=== PATIENT | male | born 1975 | race Caucasian/White ===

== ENCOUNTER → 2020-10-28 | Outpatient (CLI) | payer OTHER ==
[~2020-10-28] MED LIST: AMLODIPINE5 MG PO; BENAZEPRIL20 MG PO; CETIRIZINE HCL10 M1 PO; CIPRO500 MG PO; CRESTOR10 M1 PO; FLOMAX0.4 MG PO; HYDROCODONE BIT1 T11 PO; LEVOCETIRIZINE D5 M1 PO; MACROBID100 M1 PO; MULTIPLE VITAMI1 TA3 PO; PRILOSEC40 M1 PO; PYRIDIUM200 M1 PO; SINGULAIR10 M1 PO; VICODIN ES 7501 TAB PO
== END | disposition home or self-care (01) ==
LOC: COVID19 10:44
PROVIDERS: ATTEND Family Medicine
DX: Z20.822 Contact with and (suspected) exposure to COVID-19 (principal)

== ENCOUNTER 2021-01-11 19:10 | Emergency (ER) | payer OTHER ==
[2021-01-11] MEDS ORDERED: FLONASE ALLERG9.9 ML NAS (22:37)
[2021-01-11] MEDS ORDERED: AUGMENTIN 875875 MG PO (22:37)
[2021-01-11] MEDS ORDERED: ZYRTEC10 M2 PO (22:37)
== END 2021-01-11 22:33 | disposition home or self-care (01) ==
LOC: ED 19:10
DX: J32.9 Chronic sinusitis, unspecified (principal); Z20.822 Contact with and (suspected) exposure to COVID-19; Z79.899 Other long term (current) drug therapy; Z98.890 Other specified postprocedural states

== ENCOUNTER 2023-06-24 19:00 | Emergency (ER) | payer OTHER ==
[~2023-06-24] VITALS: Ht 172.7 cm; Wt 102.1 kg
[~2023-06-24 19:00] MED LIST changes: +AMLODIPINE BESY10 MG PO; -AMLODIPINE5 MG PO; +AUGMENTIN 875875 MG PO; +FLONASE ALLERG9.9 ML NAS; +ZYRTEC10 M2 PO
[2023-06-24 19:23] LABS: BASO # 0.2 10*3/uL (0.0-0.1); BASO % 1.7 % (0.0-1.0); EOS % 7.9 % (1.0-4.0); HEMATOCRIT 43.3 % (42.0-52.0); LYMPH # 4.3 10*3/uL (1.3-4.4); LYMPH % 34.1 % (27.0-41.0); MEAN CELL VOLUME 86.6 fl (80.0-94.0); MEAN CORPUSCULAR HGB 28.6 pg (27.0-31.0); MONO # 1.2 10*3/uL (0.1-1.0); MONO % 9.1 % (3.0-9.0); NEUT % 46.9 % (47.0-73.0); PLATELET COUNT AUTOMATED 338 10*3/uL (130-400); RED CELL DISTRI WIDTH 13.3 % (0-14.5); WHITE BLOOD COUNT 12.7 10*3/uL (4.8-10.8)
[2023-06-24 19:34] LABS: ACT PARTIAL THROMBO TIME 26.4 SECONDS (20.0-32.1)
[2023-06-24 19:50] LABS: ALKALINE PHOSPHATASE 101 U/L (46-116); BUN 8 mg/dl (9-23); CHLORIDE 105 mmol/L (98-107); POTASSIUM 3.8 mmol/L (3.4-5.1); SGPT/ALT 46 U/L (10-49); TOTAL PROTEIN 7.4 gm/dL (6.0-8.0)
[2023-06-26] MEDS ORDERED: METFORMIN HYDR500 MG PO (09:28)
[2023-06-26] MEDS ORDERED: LIPITOR80 MG PO (09:29)
[2023-06-26] MEDS ORDERED: TOPIRAMATE100 M2 PO (09:30)
[2023-06-26] MEDS ORDERED: CITALOPRAM20 MG PO (09:31)
[2023-06-26] MEDS ORDERED: BUPROPION HYDR150 M1 PO (09:32)
[2023-06-26 12:04] LABS: BASO # 0.2 10*3/uL (0.0-0.1); BASO % 1.8 % (0.0-1.0); EOS # 0.9 10*3/uL (0.0-0.4); EOS % 6.3 % (1.0-4.0); HEMATOCRIT 43.4 % (42.0-52.0); LYMPH # 3.7 10*3/uL (1.3-4.4); LYMPH % 27.1 % (27.0-41.0); MEAN CELL VOLUME 86.1 fl (80.0-94.0); MEAN CORPUSCULAR HGB 28.6 pg (27.0-31.0); MEAN CORPUSCULAR HGB CONC 33.2 g/dl (33.0-37.0); MEAN PLATELET VOLUME 8.9 fl (9.6-12.3); MONO # 1.1 10*3/uL (0.1-1.0); MONO % 7.9 % (3.0-9.0); NEUT # 7.7 10*3/uL (2.3-7.9); NEUT % 56.5 % (47.0-73.0); PLATELET COUNT AUTOMATED 323 10*3/uL (130-400); RED BLOOD COUNT 5.04 10*6/uL (4.50-5.90); RED CELL DISTRI WIDTH 13.6 % (0-14.5); WHITE BLOOD COUNT 13.6 10*3/uL (4.8-10.8)
[2023-06-26 12:34] LABS: ALKALINE PHOSPHATASE 103 U/L (46-116); BUN 12 mg/dl (9-23); CHLORIDE 106 mmol/L (98-107); POTASSIUM 4.1 mmol/L (3.4-5.1); SGPT/ALT 40 U/L (10-49); TOTAL PROTEIN 7.1 gm/dL (6.0-8.0)
== END 2023-06-26 19:47 | disposition short-term general hospital (02) ==
LOC: ED 19:00
PROVIDERS: Internal Medicine
DX: I21.4 Non-ST elevation (NSTEMI) myocardial infarction (principal); I16.0 Hypertensive urgency; E78.00 Pure hypercholesterolemia, unspecified; Z90.89 Acquired absence of other organs; Z98.890 Other specified postprocedural states

== ENCOUNTER 2024-12-30 22:24 | Emergency (ER) | payer OTHER ==
[~2024-12-30] VITALS: Ht 175.2 cm; Wt 104.3 kg
[~2024-12-30 22:24] MED LIST changes: +BUPROPION HYDR150 M1 PO; +CITALOPRAM20 MG PO; +LIPITOR80 MG PO; +METFORMIN HYDR500 MG PO; +TOPIRAMATE100 M2 PO
[2024-12-30 23:01] LABS: BASO # 0.2 10*3/uL (0.0-0.1); BASO % 1.6 % (0.0-1.0); EOS # 0.5 10*3/uL (0.0-0.4); EOS % 4.4 % (1.0-4.0); HEMATOCRIT 43.8 % (42.0-52.0); MEAN CELL VOLUME 87.6 fl (80.0-94.0); MEAN CORPUSCULAR HGB 27.8 pg (27.0-31.0); MEAN CORPUSCULAR HGB CONC 31.7 g/dl (33.0-37.0); MONO # 1.1 10*3/uL (0.1-1.0); NEUT # 6.8 10*3/uL (2.3-7.9); NEUT % 55.8 % (47.0-73.0); PLATELET COUNT AUTOMATED 353 10*3/uL (130-400); WHITE BLOOD COUNT 12.2 10*3/uL (4.8-10.8)
[2024-12-30 23:11] LABS: ACT PARTIAL THROMBO TIME 25.6 SECONDS (20.0-32.1)
[2024-12-30 23:24] LABS: ALKALINE PHOSPHATASE 90 U/L (46-116); BUN 14 mg/dl (9-23); CHLORIDE 107 mmol/L (98-107); POTASSIUM 3.8 mmol/L (3.4-5.1); SGPT/ALT 19 U/L (5-49); TOTAL PROTEIN 7.3 gm/dL (6.0-8.0)
[2024-12-31] MEDS ORDERED: HEPARIN SODIUM 250 ML IV SCH (00:10)
[2024-12-31] MEDS ORDERED: TICAGRELOR 90 MG TABLET PO ONE (00:10)
[2024-12-31] MEDS ORDERED: Ondansetron Hydrochloride 4 MG/2 ML VIAL IV ONE (00:20)
== END 2024-12-31 01:53 | disposition short-term general hospital (02) ==
LOC: ED 22:24
PROVIDERS: Internal Medicine
DX: I24.9 Acute ischemic heart disease, unspecified (principal); R79.89 Other specified abnormal findings of blood chemistry; D72.829 Elevated white blood cell count, unspecified; I25.10 Atherosclerotic heart disease of native coronary artery without angina pectoris; R00.0 Tachycardia, unspecified; Z79.899 Other long term (current) drug therapy; Z79.84 Long term (current) use of oral hypoglycemic drugs; Z98.890 Other specified postprocedural states

== ENCOUNTER 2025-02-24 21:29 | Observation (INO) | payer OTHER ==
[~2025-02-24] VITALS: Ht 177.8 cm; Wt 99.8 kg
[2025-02-24 21:47] LABS: BASO # 0.2 10*3/uL (0.0-0.1); BASO % 1.7 % (0.0-1.0); EOS # 0.7 10*3/uL (0.0-0.4); EOS % 5.9 % (1.0-4.0); HEMATOCRIT 42.5 % (42.0-52.0); MEAN CELL VOLUME 86.9 fl (80.0-94.0); MEAN CORPUSCULAR HGB 27.4 pg (27.0-31.0); MEAN CORPUSCULAR HGB CONC 31.5 g/dl (33.0-37.0); MEAN PLATELET VOLUME 8.9 fl (9.6-12.3); MONO # 1.1 10*3/uL (0.1-1.0); NEUT # 6.5 10*3/uL (2.3-7.9); NEUT % 55.7 % (47.0-73.0); PLATELET COUNT AUTOMATED 312 10*3/uL (130-400); RED BLOOD COUNT 4.89 10*6/uL (4.50-5.90); RED CELL DISTRI WIDTH 13.8 % (0-14.5); WHITE BLOOD COUNT 11.7 10*3/uL (4.8-10.8)
[2025-02-24] MEDS ORDERED: Albuterol Sulf/Ipratropium 3 ML VIAL NEB ONE (21:55)
[2025-02-24 21:58] LABS: ACT PARTIAL THROMBO TIME 24.4 SECONDS (20.0-32.1)
[2025-02-24 22:03] LABS: ALKALINE PHOSPHATASE 79 U/L (46-116); BUN 14 mg/dl (9-23); CHLORIDE 106 mmol/L (98-107); POTASSIUM 3.7 mmol/L (3.4-5.1); SGPT/ALT 25 U/L (5-49); TOTAL PROTEIN 7.1 gm/dL (6.0-8.0)
[2025-02-25] MEDS ORDERED: FUROSEMIDE 20 MG/2 ML VIAL IV ONE (00:45)
[2025-02-25 01:21] VITALS: BP 123/72
[2025-02-25 03:26] VITALS: BP 132/75
[2025-02-25 06:39] VITALS: BP 135/67
[2025-02-25 07:37] VITALS: BP 148/76
[2025-02-25] MEDS ORDERED: TEMAZEPAM 15 MG CAP PO PRN (10:55)
[2025-02-25] MEDS ORDERED: ACETAMINOPHEN 325 MG TAB PO PRN (10:55)
[2025-02-25] MEDS ORDERED: BISACODYL 10 MG SUPP R PRN (10:55)
[2025-02-25] MEDS ORDERED: BISACODYL 5 MG TAB PO PRN (10:55)
[2025-02-25] MEDS ORDERED: Magnesium Hydroxide 30 ML UDC PO PRN (10:55)
[2025-02-25] MEDS ORDERED: ACETAMINOPHEN 650 MG SUPP R PRN (10:55)
[2025-02-25] MEDS ORDERED: ASPIRIN 325 MG TAB PO SCH (11:35)
[2025-02-25] MEDS ORDERED: ESCITALOPRAM OXALATE 10 MG TAB PO SCH (12:15)
[2025-02-25 12:51] VITALS: BP 157/71
[2025-02-25] MEDS ORDERED: CARVEDILOL6.25 MG PO (13:25)
[2025-02-25] MEDS ORDERED: ASPIRIN ADULT L81 M1 PO (13:25)
[2025-02-25] MEDS ORDERED: LEXAPRO10 MG PO (13:26)
[2025-02-25] MEDS ORDERED: LASIX20 MG PO (13:27)
[2025-02-25] MEDS ORDERED: ATIVAN1 MG PO (13:28)
[2025-02-25] MEDS ORDERED: ROSUVASTATIN CA40 MG PO (13:28)
[2025-02-25] MEDS ORDERED: ZETIA10 MG PO (13:28)
[2025-02-25] MEDS ORDERED: PANTOPRAZOLE SO40 MG PO (13:29)
[2025-02-25] MEDS ORDERED: PRAMIPEXOLE DI1.5 MG PO (13:30)
[2025-02-25] MEDS ORDERED: KLOR-CON M2020 ME1 PO (13:30)
[2025-02-25] MEDS ORDERED: Ondansetron Hydrochloride 4 MG/2 ML VIAL IV ONE (17:00)
[2025-02-25 17:27] VITALS: BP 139/67
[2025-02-25] MEDS ORDERED: CARVEDILOL 6.25 MG TAB PO SCH (22:00)
[2025-02-26] MEDS ORDERED: LORazepam 1 MG TAB PO SCH (10:00)
[2025-02-26] MEDS ORDERED: Enoxaparin Sodium 40 MG/0.4 ML SYR SC SCH (10:00)
[2025-02-26] MEDS ORDERED: ATORVASTATIN CALCIUM 80 MG TAB PO SCH (10:00)
[2025-02-26] MEDS ORDERED: FUROSEMIDE 20 MG/2 ML VIAL IV SCH (10:00)
== END 2025-02-25 17:21 | disposition short-term general hospital (02) ==
LOC: ED 21:29 → EDHOLD 02-25 10:39
PROVIDERS: Emergency Medicine; ADMIT Internal Medicine; ATTEND Internal Medicine
DX: I11.0 Hypertensive heart disease with heart failure (principal); I50.9 Heart failure, unspecified; E11.9 Type 2 diabetes mellitus without complications; I25.10 Atherosclerotic heart disease of native coronary artery without angina pectoris; I25.2 Old myocardial infarction; R79.89 Other specified abnormal findings of blood chemistry; J96.91 Respiratory failure, unspecified with hypoxia; Z79.899 Other long term (current) drug therapy

== ENCOUNTER 2025-04-07 19:51 | Emergency (ER) | payer OTHER ==
[~2025-04-07] VITALS: Ht 170.1 cm; Wt 104.3 kg
[~2025-04-07 19:51] MED LIST changes: +ASPIRIN ADULT L81 M1 PO; +ATIVAN1 MG PO; +CARVEDILOL6.25 MG PO; +KLOR-CON M2020 ME1 PO; +LASIX20 MG PO; +LEXAPRO10 MG PO; +PANTOPRAZOLE SO40 MG PO; +PRAMIPEXOLE DI1.5 MG PO; +ROSUVASTATIN CA40 MG PO; +ZETIA10 MG PO
[2025-04-07] MEDS ORDERED: FAMOTIDINE 50 ML IV ONE (20:15)
[2025-04-07] MEDS ORDERED: diphenhydrAMINE hydrochloride 50 MG/ML VIAL IV ONE (20:15)
== END 2025-04-07 22:25 | disposition home or self-care (01) ==
LOC: ED 19:51
DX: T63.441A Toxic effect of venom of bees, accidental (unintentional), initial encounter (principal); Z98.890 Other specified postprocedural states; Z90.89 Acquired absence of other organs; Z88.8 Allergy status to other drugs, medicaments and biological substances; Y92.89 Other specified places as the place of occurrence of the external cause